=== PATIENT | female | born 1995 | race Two or more races ===

== ENCOUNTER 2022-03-21 20:03 | Emergency (ER) | payer MEDICAID ==
[~2022-03-21] VITALS: Ht 165.1 cm; Wt 51.0 kg
[2022-03-21 20:15] VITALS: BP 111/74
== END 2022-03-21 21:16 | disposition left against medical advice (07) ==
LOC: ER 20:03
DX: Z53.21 Procedure and treatment not carried out due to patient leaving prior to being seen by health care provider (principal)